=== PATIENT | female | born 1960 | race Hispanic/Latino ===

== ENCOUNTER 2017-04-14 08:19 | Day surgery (SDC) | payer OTHER ==
[2017-04-13 12:33] VITALS: BMI 36.3
[~2017-04-14 08:19] MED LIST: FLU VACC QS2017-18 36 mo. & older 0.5 ML SYRINGE IM ONE
[2017-04-14 08:43] LABS: #Eosinphils 0.1 thou/uL (0.0-0.7); #Lymphocytes 1.9 thou/uL (1.20-3.40); #Monocytes 0.5 thou/uL (0.11-0.59); #Neutrophils 2.3 thou/uL (1.40-6.50); %Basophils 0.6 % (0.0-1.0); %Eosinophils 1.6 % (0.0-10.0); %Lymphocytes 39.9 % (21.0-51.0); %Monocytes 10.7 % (0.0-10.0); Hematocrit 41.6 % (36.0-47.0); Mean Platelet Volume 7.8 fL (7.4-10.4); Red Blood Cell (RBC) Count 4.27 mill/uL (4.20-5.40); White Blood Cell (WBC) Count 4.8 thou/uL (4.8-10.8)
[2017-04-14 08:44] LABS: Prothrombin Time 13.9 SEC (12.0-14.7)
[2017-04-14 09:51] VITALS: BP 131/58; TEMP 98.1
--- NOTE | 2017-04-14 12:16 | ULT ---
SONOGRAPHIC GUIDED HEPATIC BIOPSY: History: Abnormal liver function tests. FINDINGS: After explaining the procedure and answering all questions, an anterior subxyphoid approach to the l ateral segment left liver lobe was planned. Sterile technique, buffered local anesthesia, sonographi c guidance and an anterior approach were used to carefully advance the tip of 17 gauge Trocar needle into the left liver lobe. Position was confirmed with sonography. Two 18 gauge core biopsy specimen s were obtained without difficulty and submitted to pathology for evaluation. Needle was removed. Po st procedure imaging shows no evidence of complication. Patient tolerated the procedure well and was eventually discharged in good condition. IMPRESSION: Technically successful sonographic guided random hepatic biopsy. Pathology is pending. POS: [facility]
== END 2017-04-14 11:35 | disposition home or self-care (01) ==
LOC: ULT 08:19
PROVIDERS: ATTEND Internal Medicine
PROC: 0FB23ZX Excision of Left Lobe Liver, Percutaneous Approach, Diagnostic (ICD-10-PCS; principal; 2017-04-14)
DX: K75.81 Nonalcoholic steatohepatitis (NASH) (principal); E11.9 Type 2 diabetes mellitus without complications; Z79.84 Long term (current) use of oral hypoglycemic drugs; Z79.899 Other long term (current) drug therapy
CPT/HCPCS: 36415; 47000; 76942; 85025; 85610; 85730; 88307; 88313